=== PATIENT | male | born 1965 | race Caucasian/White ===

== ENCOUNTER 2017-02-02 06:52 | Day surgery (SDC) | payer BC ==
[~2017-02-02 06:52] MED LIST: ACETAMINOPHEN 500 MG TABLET PO PRN; HYDROmorphone HCL 2 MG/ML VIAL IV PRN; MAG HYDROX/ALUMINUM HYD/SIMETH 30 ML UDC PO PRN; MAGNESIUM HYDROXIDE 30 ML UDC PO PRN; ONDANSETRON HCL/PF 2 MG/ML VIAL IV PRN; PROMETHAZINE HCL 25 MG in DEXTROSE 5 % IN WATER 50 ML IV PRN; RINGERS SOLUTION,LACTATED 1,000 ML IV PRN; ROPIVACAINE HCL/PF 40 MG in NORMAL SALINE 16 ML IJ PRN; ZOLPIDEM TARTRATE 5 MG TABLET PO PRN; ceFAZolin SODIUM 1 GM VIAL IV PRN; diphenhydrAMINE HCL 50 MG/ML VIAL IV PRN
--- OUTSIDE RECORDS SUMMARY | 2017-02-02 06:56 | XMS REPORT | Continuity of Care Document ---
:1965 Author Organization [facility] ([facility]) Address [address] [place] [address] Phone [phone] Care Team Providers Name Role Phone Sarah Beth Bradford Primary Care Provider [phone] Source Comments This disclosure is being made pursuant to the Care Everywhere program, applicable federal and state laws, and may not contain all informaitonavailable regarding this patient.[facility] ([facility]) Active Allergies and Adverse Reactions No Known Allergies Current Medications Prescription Sig. Disp. Refills Start Date End Date Status levothyroxine 125 Take 125 mcg by mouth Active mcg tablet every morning before breakfast. albuterol 90 Use 2 Puffs by inhalation Active mcg/Actuation every 6 hours as needed. inhaler atorvastatin 80 mg Take 1 Tab by mouth at 30 Tab 11 08/13/2014 Active tablet bedtime. Indications: HYPERCHOLESTEROLEMIA SUPPLY BD insulin inject subcutaneously 100 Each 11 08/13/2014 Active UF mini 31 g x 5 daily. Indications: TYPE MM pen needle 2 DIABETES MELLITUS metFORMIN 500 mg Take 2 tabs two x per day 120 Tab 11 08/15/2014 Active XR tablet Indications: TYPE 2 DIABETES MELLITUS SUPPLY BD insulin Use with insulin 4 times 200 Each 11 08/31/2014 Active UF short 31 X 8 MM daily. Indications: TYPE pen needle 2 DIABETES MELLITUS insulin glargine 42 Units at bedtime. 08/13/2014 Active (LanTUS SOLOSTAR) Inject 30 units at 100 unit/mL (3 mL) bedtime. Indications: injection pen TYPE 2 DIABETES MELLITUS insulin lispro Inject TID with meals 30 mL 0 02/21/2015 Active (HumaLOG kwikpen) plus sliding scale. 100 unit/mL (3 mL) Approximately 60 units injection pen daily. Indications: TYPE 2 DIABETES MELLITUS Active Problems Problem Noted Date Diabetes mellitus type 2, uncontrolled 08/13/2014 Morbid obesity 08/13/2014 Social History Tobacco Use Types Packs/Day Years Used Date Never Smoker Smokeless Tobacco: Never Used Alcohol Use Drinks/Week oz/Week Comments Yes 2 Glasses of wine 2 Cans of beer 2 Standard drinks or equivalent Last Filed Vital Signs Vital Sign Reading Time Taken Blood Pressure 124/86 10/29/2014 4:09 PM DIESEL MOTOR MECHANIC Pulse 91 10/29/2014 4:09 PM DIESEL MOTOR MECHANIC Temperature 36.4 C (97.5 F) 10/29/2014 4:09 PM DIESEL MOTOR MECHANIC Respiratory Rate 18 10/29/2014 4:09 PM DIESEL MOTOR MECHANIC Height 1.88 m (6' 2") 10/29/2014 4:09 PM DIESEL MOTOR MECHANIC Weight 161.798 kg (356 lb 11.2 oz) 10/29/2014 4:09 PM DIESEL MOTOR MECHANIC Body Mass Index 45.78 10/29/2014 4:09 PM DIESEL MOTOR MECHANIC Oxygen Saturation 97% 08/13/2014 12:48 PM CDT Plan of Care Health Maintenance Due Date Last Done Comments HCV Screening 1965 Hepatitis B Vaccine (1 of 3 - Primary 1965 Series) Tdap Vaccine 02/04/1976 DIABETIC: Cholesterol 1983 Diabetic: Hdl 1983 Diabetic: Ldl 1983 DIABETIC: Microalbumin 1983 DIABETIC: Triglycerides 1983 MMR Vaccine 1983 Td Vaccine 1983 Pneumococcal Vaccine (1 of 1 - PPSV23) 02/04/1984 DIABETIC: Foot Exam 08/13/2014 DIABETIC: Retinal Eye Exam 08/13/2014 Colonoscopy 2015 Prostate Cancer Screening 2015 DIABETIC: Hemoglobin A1C 04/29/2015 10/29/2014, 08/13/2014 Influenza Vaccine: Seasonal (#1) 06/08/2016 Results from Last 3 Months Not on file
[2017-02-02] MEDS ORDERED: RINGERS SOLUTION,LACTATED 1,000 ML IV ONE ×2 (07:35→08:30)
[2017-02-02] MEDS ORDERED: BUPIVACAINE HCL/EPINEPHRINE 50 ML VIAL IJ ONE ×2 (08:16)
--- NOTE | 2017-02-02 08:54 | OR ---
Operative Report - Dictated Report Narrative: Date: 02/02/2017 Physician: Marcos Tarango M.D. Capacitor Pack Press Operator: Jt Shepard PA-C Preoperative diagnosis: Right Knee medial meniscus tear Postoperative diagnosis: Right Knee medial meniscus tear, chondral injury of medial femoral condyle and femoral trochlea Procedure: Right knee arthroscopy with partial medial meniscectomy, chondroplasty of the medial femoral condyle and trochlear groove Anesthesia: MAC Plus local Complications: None Estimated blood loss: Minimal Tourniquet time: None Specimens: None Retained implants: None Drains: None Indications: Zachary Is a 52 year-old male who has been followed in my clinic with complaints of knee pain consistent with suspected medial meniscal pathology. Physical exam and diagnostic imaging were consistent with these complaints and concern for medial meniscal pathology. Conservative measures have failed including, but not limited to, passage of time, activity modification, medications, and injections. The risks, benefits, and alternatives were discussed in clinic. The risks being , bleeding, infection, blood clots, nerve, tendon, ligament , blood vessel injury, persistent pain, arthrosis, need for additional procedures, and persistent symptoms. Consent was obtained in the clinic. Procedure: After marking the correct extremity in the preoperative holding area, a timeout was performed in the operating room. IV antibiotics consisting of 2 g of Ancef were administered prior to the procedure. A well-padded tourniquet was applied to the operative upper thigh. The leg was prepped and draped in a standard sterile fashion. 0.5% Marcaine with epinephrine was infused into the projected portal sites as well as the intra-articular space. A ke incision was made for inferior lateral portal. A blunt trocar and cannula was introduced into the knee. The suprapatellar pouch revealed no loose bodies. The medial patella facet showed no chondral changes. The lateral patella facet showed mild grade 1 chondral changes. The trochlea showed and area approximately 20 mm x 15 mm at the distal aspect of the groove with full-thickness cartilage injury and numerous loose cartilage flaps. The medial gutter revealed no loose bodies. The medial joint space was then entered utilizing a lateral post and valgus stress. A spinal needle was utilized for guidance into placement of an anterior medial portal. This was placed just superior to the medial meniscus ensuring that we could reach the posterior aspect of the medial joint space. A ke incision was made in the site, and the probe was introduced to the knee. The medial joint space was examined, and the medial femoral condyle showed and area of grade 3 chondral injury approximately 10 x 15 mm. The medial tibial plateau showed mild grade 1 and grade 2 chondral changes. The medial meniscus had a partial-thickness radial tear of the posterior horn near the junction with the body with a loose meniscal flap. The notch was then examined, and the ACL was noted to be intact. The PCL was noted to be intact. The lateral joint space was then examined using a varus force in the figure 4 position. Lateral femoral condyle showed no chondral changes. Lateral tibial plateau showed grade 1 and grade 2 chondral changes with a partial-thickness fissure extending from anterior to posterior. The lateral meniscus showed no pathology. The lateral gutter showed no loose bodies. Having identified the surgical pathology , a series of biters and jorge were utilized in order to debride the medial meniscus, medial femoral condyle, and trochlear groove. Once it was felt that we adequately addressed the pathology, the knee was thoroughly irrigated. The fluid was evacuated ensuring that we have removed all meniscal, chondral, and any other loose bodies. A final evaluation of the joint showed no additional pathology. The fluid was then evacuated of the knee, and the trocar and camera were removed from the joint. The wounds were closed with interrupted nylon after placing 20 mL of 0.2% ropivacaine into the joint. Dressings consisting of Xeroform, 4 x 4, ABD, soft roll, and an Corey were applied. All sponge, needle, blade, and instrument counts were correct prior to closing the wounds. The patient was awoken and transferred to the post-anesthesia care unit in stable condition.
[2017-02-02] MEDS ORDERED: HYDROcodone/ACETAMINOPHEN 1 EACH TABLET PO PRN (09:25)
[2017-02-02] MEDS ORDERED: INSULIN ASPART 100 UNITS/ML VIAL SC ONE (09:30)
[2017-02-02 11:48] VITALS: BP 141/82
[2017-02-02] MEDS ORDERED: SENNOSIDES/DOCUSATE SODIUM 1 TAB TABLET PO SCH (21:00)
== END 2017-02-02 06:53 | disposition home or self-care (01) ==
LOC: AMB 06:52
PROVIDERS: ATTEND Orthopaedic Surgery
PROC: 0SBC4ZZ Excision of Right Knee Joint, Percutaneous Endoscopic Approach (ICD-10-PCS; principal; 2017-02-02 08:00)
DX: M23.221 Derangement of posterior horn of medial meniscus due to old tear or injury, right knee (principal); E11.9 Type 2 diabetes mellitus without complications; J45.909 Unspecified asthma, uncomplicated; E03.9 Hypothyroidism, unspecified; E66.01 Morbid (severe) obesity due to excess calories; Z68.42 Body mass index [BMI] 45.0-49.9, adult

== ENCOUNTER 2017-03-27 01:02 | Emergency (ER) | payer BC ==
[2017-03-27 01:31] LABS: Hematocrit 48.9 % (42.0-52.0); Hemoglobin 16.4 gm/dL (13.5-18.0); Mean Cell Volume 83.6 fl (78-100); Mean Corpuscular Hgb Conc 33.5 g/dl (32-36); Neutrophil # 10.7 K/mm3 (1.3-6.0); Neutrophil % 73.8 % (42-75.0); Platelet Count 334 K/mm3 (150-450); Red Blood Count 5.85 M/mm3 (4.7-6.0); Red Cell Distribution Width 12.8 % (11.5-14.0); White Blood Count 14.5 K/mm3 (4.0-10.5)
[2017-03-27] MEDS ORDERED: NORMAL SALINE 1,000 ML IV ONE (01:40)
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
[2017-03-27 01:43] LABS: INR 1.01 INR (0.90-1.10); Prothrombin Time (Patient) 10.5 Seconds (9.4-11.4)
[2017-03-27 01:50] LABS: Albumin * 3.8 gm/dl (3.4-5.0); Anion Gap 16.1 mmol/L (6.8-13.8); BUN/Creatinine Ratio 14.9 (9.0-21.6); Bilirubin, Total 0.4 mg/dL (0.0-1.1); Ca. Corrected For Albumin 8.9 mg/dL (8.4-10.2); Calcium * 9.1 mg/dL (7.9-10.9); Carbon Dioxide 25.1 mmol/L (24-32.6); Total Protein 7.8 gm/dL (6.2-8.2)
[2017-03-27 01:51] LABS: Potassium 5.2 mmol/L (3.4-4.6)
--- OUTSIDE RECORDS SUMMARY | 2017-03-27 02:23 | XMS REPORT | Continuity of Care Document ---
:1965 Author Organization [facility] ([facility]) Address [address] [place] [address] Phone [phone] Care Team Providers Name Role Phone Sarah Beth Bradford Primary Care Provider [phone] Source Comments This disclosure is being made pursuant to the Care Everywhere program, applicable federal and state laws, and may not contain all informaitonavailable regarding this patient.[facility] ([facility]) Active Allergies and Adverse Reactions No [...] Taken Blood Pressure 124/86 10/29/2014 4:09 PM MANAGEMENT COORDINATOR Pulse 91 10/29/2014 4:09 PM MANAGEMENT COORDINATOR Temperature 36.4 C (97.5 F) 10/29/2014 4:09 PM MANAGEMENT COORDINATOR Respiratory Rate 18 10/29/2014 4:09 PM MANAGEMENT COORDINATOR Height 1.88 m (6' 2") 10/29/2014 4:09 PM MANAGEMENT COORDINATOR Weight 161.798 kg (356 lb 11.2 oz) 10/29/2014 4:09 PM MANAGEMENT COORDINATOR Body Mass Index 45.78 10/29/2014 4:09 PM MANAGEMENT COORDINATOR Oxygen Saturation 97% 08/13/2014 12:48 PM CDT [...]
[2017-03-27] MEDS ORDERED: INSULIN REGULAR, HUMAN 100 UNITS/ML VIAL SC ONE (03:05)
[2017-03-27] MEDS ORDERED: KETOROLAC TROMETHAMINE 30 MG/ML VIAL IV ONE (03:08)
[2017-03-27] MEDS ORDERED: KETOROLAC TROMETHAMINE 30 MG/ML VIAL ONE (03:30)
[2017-03-27] MEDS ORDERED: INSULIN REGULAR, HUMAN 100 UNITS/ML VIAL ONE (03:30)
[2017-03-27 03:38] LABS: Urine Bilirubin Negative (NEGATIVE); Urine Blood 25 /ul (NEGATIVE); Urine Ketone 5 mg/dL (NEGATIVE); Urine Nitrite Negative (NEGATIVE); Urine Protein Negative (NEGATIVE); Urine Specific Gravity <=1.005 SP.GR. (1.005-1.030); Urine Urobilinogen Normal (NORMAL); Urine pH 5.5 pH (5.0-7.0)
[2017-03-27 03:39] LABS: Urine Appearance Clear; Urine Bacteria None Seen; Urine Color Pale Yellow; Urine RBC 0-5 /hpf (0-5); Urine WBC 0-5 /hpf (0-5)
[2017-03-27 04:09] LABS: Cocaine Ur Negative (NEGATIVE); Urine Barbiturate Negative (NEGATIVE); Urine Benzodiazepines Negative (NEGATIVE); Urine Opiates Negative (NEGATIVE); Urine PCP Negative (NEGATIVE); Urine THC Negative (NEGATIVE)
[2017-03-27] MEDS ORDERED: INSULIN REGULAR, HUMAN 100 UNITS/ML VIAL IV ONE (04:50)
[2017-03-27] MEDS ORDERED: MORPHINE SULFATE 4 MG/ML SYRG IV ONE (06:11)
[2017-03-27] MEDS ORDERED: MORPHINE SULFATE 4 MG/ML SYRG ONE (06:12)
[2017-03-27 06:33] VITALS: BP 119/61
== END 2017-03-27 06:30 | disposition home or self-care (01) ==
LOC: ER 01:02
PROC: 0T9B7ZZ Drainage of Bladder, Via Natural or Artificial Opening (ICD-10-PCS; principal; 2017-03-27)
DX: S22.42XA Multiple fractures of ribs, left side, initial encounter for closed fracture (principal); E11.65 Type 2 diabetes mellitus with hyperglycemia; F10.929 Alcohol use, unspecified with intoxication, unspecified; Z79.4 Long term (current) use of insulin; V89.2XXA Person injured in unspecified motor-vehicle accident, traffic, initial encounter; E03.9 Hypothyroidism, unspecified; J45.909 Unspecified asthma, uncomplicated
CPT/HCPCS: 36415; 51701; 70450; 71010; 71260; 72125; 72131; 72170; 73090; 73562; 74177; 80053; 80307; 81001; 84484; 85025; 85610; 93005; 96372; 96374; 96375; 99284; G0481